=== PATIENT | female | born 2000 | race Caucasian/White ===

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

== ENCOUNTER 2019-01-02 13:05 | Inpatient (IN) | payer OTHER ==
[2019-01-02] MEDS ORDERED: TUBERCULIN PPD 5 TU/0.1ML SYRINGE (IN PATIENT USE ONLY) ID ONE (13:40)
[2019-01-02] MEDS: ELECTROLYTE-148 SOLN 1,000 ML IV SCH ×2 (13:55→16:51)
[2019-01-02 13:59] VITALS: BMI 25.7
[2019-01-02 14:00] LABS: BASO % 0.3 % (0-2.0); EOS % 0.3 % (0-4.5); HEMATOCRIT 36.6 % (32.4-45.2); HEMOGLOBIN 12.5 GM/dL (10.7-15.3); LYMPH % 18.1 % (8-40); MCH 32.1 pg (25.7-33.7); MCHC 34.1 g/dl (32.0-36.0); MEAN CELL VOLUME 94.1 fl (80-96); MEAN PLT VOLUME 11.4 fl (7.5-11.1); MONO % 5.2 % (3.8-10.2); NEUT % 76.1 % (42.8-82.8); PLATELET COUNT 153 K/MM3 (134-434); RBC 3.89 M/mm3 (3.60-5.2); RDW 13.6 % (11.6-15.6); WHITE BLOOD COUNT 13.2 K/mm3 (4.0-10.0)
[2019-01-02] MEDS ORDERED: FENTANYL/BUPIVACAINE/NS/PF - PCEA - 50 ML DISP.SYRIN EP ONE (14:14)
[2019-01-02 14:29] LABS: CALCIUM 9.1 mg/dL (8.5-10.1); CREATININE 0.4 mg/dL (0.55-1.3); POTASSIUM 3.5 mmol/L (3.5-5.1)
[2019-01-02 14:31] LABS: INR 0.94 (0.83-1.09); PROTHROMBIN TIME (PATIENT) 11.1 SEC (9.7-13.0)
[2019-01-02 14:34] LABS: ACTIVATED PTT 27.6 SECONDS (25.2-36.5)
--- NOTE | 2019-01-02 16:12 | HP ---
Past Medical History - Admission Chief Complaint: Labor pain History of Present Illness: 18 yo @ 39 weeks gestation, EDC 01/09/19, presents c/o labor pain. Uppon admission she was 4cm dilated with intact membrane. History Source: Patient Limitations to Obtaining History: No Limitations - Past Medical History ...: 3 ...Para: 1 ...Term: 1 ...: 0 ...Spon : 1 ...Induced : 0 ...Multiple Gestation: 0 ...LMP: 04/29/18 ... Weeks Gestation by Dates: 35.4 ...EDC by Dates: 02/02/19 ...EDC by Sono: 01/09/19 - Past Surgical History Past Surgical History: Yes: None Hx Myomectomy: No Hx Transabdominal Cerclage: No - Smoking History Smoking history: Never smoked Have you smoked in the past 12 months: Yes - Alcohol/Substance Use Hx Alcohol Use: No History of Substance Use: reports: None - Social History History of Recent Travel: No Home Medications - Allergies Allergies/Adverse Reactions: Allergies Allergy/AdvReac Type Severity Reaction Status Date / Time No Known Allergies Allergy Verified 01/02/19 13:41 - Home Medications Home Medications: Ambulatory Orders Vit/Iron Fum/Folic AC [ Tablet] 1 each PO DAILY 05/25/16 Family Disease History - Family Disease History Family History: Unremarkable Review of Systems - Review of Systems Constitutional: reports: No Symptoms Eyes: reports: No Symptoms HENT: reports: No Symptoms Neck: reports: No Symptoms Cardiovascular: reports: No Symptoms Respiratory: reports: No Symptoms Gastrointestinal: reports: No Symptoms Genitourinary: reports: Pain Breasts: reports: No Symptoms Reported Musculoskeletal: reports: No Symptoms Integumentary: reports: No Symptoms Neurological: reports: No Symptoms Psychiatric: reports: No Symptoms Pain Intensity: 6 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 - Maternity Vital Signs: Vital Signs Temperature 98.2 F 01/02/19 15:00 Pulse Rate 107 H 01/02/19 15:00 Respiratory Rate 20 01/02/19 15:00 Blood Pressure 100/63 01/02/19 15:00 O2 Sat by Pulse Oximetry (%) Constitutional: Yes: Well Nourished Eyes: Yes: Conjunctiva Clear HENT: Yes: Atraumatic Neck: Yes: Supple Cardiovascular: Yes: Regular Rate and Rhythm Lungs: Clear to auscultation - Abdominal Exam/OB Number of Fetuses: Single Presentation: Vertex - Vaginal Exam/OB Dilatation (cm): 4 Effacement (%): 80 Amniotic Membrane Status: Intact Station: -1 - 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 Musculoskeletal: Yes: WNL Extremities: Yes: WNL ...Motor Strength: WNL Psychiatric: Yes: Alert, Oriented - Labs Lab Results: CBC, BMP 01/02/19 13:38 01/02/19 13:38 Problem List - Problems (1) Pain during labor Code(s): O99.89 - OTH DISEASES AND CONDITIONS COMPL PREG/CHLDBRTH; R52 - PAIN, UNSPECIFIED Assessment/Plan 39 weeks gestation Labor pain Admit to L&D Analgesia as needed Anticipate
[2019-01-02] MEDS ORDERED: DEXTROSE 5%-LACTATED RINGERS 1,000 ML IV SCH (16:15)
[2019-01-02] MEDS ORDERED: NALOXONE HCL 0.4 MG/ML VIAL IVPUSH PRN (16:25)
[2019-01-02] MEDS ORDERED: FENTANYL/BUPIVACAINE/NS/PF - PCEA - 50 ML DISP.SYRIN EP SCH (16:30)
[2019-01-02] MEDS ORDERED: OXYTOCIN 20 UNITS in 0.9% NS 20 UNIT/1,000 ML INFUS.BAG IV ONE (17:52)
[2019-01-02] MEDS ORDERED: METHYLERGONOVINE MALEATE 0.2 MG/1 ML AMP IM PRN (18:25)
[2019-01-02] MEDS ORDERED: BENZOCAINE 28 GM HEMORRHOIDAL OINTMENT TP PRN (18:25)
[2019-01-02] MEDS ORDERED: BISACODYL 10 MG SUPP.RECT RC PRN (18:25)
[2019-01-02] MEDS ORDERED: BENZOCAINE 20% 57 GM BOTTLE TP PRN (18:25)
[2019-01-02] MEDS ORDERED: WITCH HAZEL 50% (TUCKS) 40 PAD/JAR PAD TP PRN (18:25)
--- NOTE | 2019-01-02 18:28 | PN ---
Delivery - Delivery Vaginal Delivery: Spontaneous Type of Anesthesia: Epidural Episiotomy/Laceration: 1st degree EBL (cc): 300 Delivery, Single - [place] Feeding Plan Initial Plan: Elected not to breastfeed exclusively throughout hospitalization Remarks - Remarks Remarks: Normal spontaneous vaginal delivery of a live infant girl over first degree laceration. Nose / Oroharynx suctioned @ perineum. Cord clamped and cut. Baby handed to nurse. Placenta expelled spontaneously intact. Laceration repaired with 2.0 Biosyn.
[2019-01-02] MEDS ORDERED: OXYTOCIN 20 UNITS in 0.9% NS 20 UNIT/1,000 ML INFUS.BAG IV SCH (18:30)
[2019-01-02] MEDS: FERROUS SO4 325 MG TABLET (FP) PO SCH (22:55)
[2019-01-02] MEDS: IBUPROFEN 600 MG TABLET (FP) PO PRN (23:53)
[2019-01-02] MEDS: ACETAMINOPHEN 325 MG TABLET (FP) PO PRN (23:55)
[2019-01-03 06:36] LABS: HBsAG SCREEN Negative (Negative)
[2019-01-03 07:07] LABS: BASO % 0.3 % (0-2.0); EOS % 0.8 % (0-4.5); HEMATOCRIT 32.5 % (32.4-45.2); HEMOGLOBIN 11.2 GM/dL (10.7-15.3); MCH 32.4 pg (25.7-33.7); MCHC 34.4 g/dl (32.0-36.0); MEAN CELL VOLUME 94.2 fl (80-96); MEAN PLT VOLUME 10.6 fl (7.5-11.1); NEUT % 69.9 % (42.8-82.8); PLATELET COUNT 130 K/MM3 (134-434); RBC 3.45 M/mm3 (3.60-5.2); RDW 13.4 % (11.6-15.6); WHITE BLOOD COUNT 12.9 K/mm3 (4.0-10.0)
[2019-01-03] MEDS: ELECTROLYTE-148 SOLN 1,000 ML IV SCH (07:19)
--- NOTE | 2019-01-03 08:09 | PN ---
Post Progress Note - Subjective Subjective: 18 yo Para 2 status post vaginal delivery, seen and evaluated. Doing well Post Day: 1 Type of Delivery: Vital Signs: Vital Signs Temperature 97.8 F 01/03/19 06:00 Pulse Rate 84 01/03/19 06:00 Respiratory Rate 18 01/03/19 06:00 Blood Pressure 121/71 01/03/19 06:00 O2 Sat by Pulse Oximetry (%) 98 01/02/19 22:05 Breast Exam: Yes: Soft Uterus: Yes: Fundus Firm Abdomen/GI: Yes: Abdomen soft, Tolerating PO Lochia: Yes: Rubra Lochia, amount: Moderate Extremities: Yes: Calves non-tender Perineum: Yes: Laceration (Healing) Activity: Ambulating - Labs Labs: CBC WBC 12.9 K/mm3 (4.0-10.0) H 01/03/19 05:20 RBC 3.45 M/mm3 (3.60-5.2) L 01/03/19 05:20 Hgb 11.2 GM/dL (10.7-15.3) 01/03/19 05:20 Hct 32.5 % (32.4-45.2) 01/03/19 05:20 MCV 94.2 fl (80-96) 01/03/19 05:20 MCH 32.4 pg (25.7-33.7) 01/03/19 05:20 MCHC 34.4 g/dl (32.0-36.0) 01/03/19 05:20 RDW 13.4 % (11.6-15.6) 01/03/19 05:20 Plt Count 130 K/MM3 (134-434) L 01/03/19 05:20 MPV 10.6 fl (7.5-11.1) 01/03/19 05:20 Absolute Neuts (auto) 9.0 K/mm3 (1.5-8.0) H 01/03/19 05:20 Neutrophils % 69.9 % (42.8-82.8) 01/03/19 05:20 Lymphocytes % 22.0 % (8-40) D 01/03/19 05:20 Monocytes % 7.0 % (3.8-10.2) 01/03/19 05:20 Eosinophils % 0.8 % (0-4.5) D 01/03/19 05:20 Basophils % 0.3 % (0-2.0) 01/03/19 05:20 Nucleated RBC % 0 % (0-0) 01/03/19 05:20 Problem List - Problems (1) Pain during labor Code(s): O99.89 - OTH DISEASES AND CONDITIONS COMPL PREG/CHLDBRTH; R52 - PAIN, UNSPECIFIED (2) Status post normal vaginal delivery Code(s): [id number] - Assessment/Plan Status post normal vaginal delivery Stable Continue routine care
[2019-01-03] MEDS: PRENATAL VITAMINS W/ FOLIC ACID TABLET (FP) PO SCH (09:00)
[2019-01-03] MEDS: FERROUS SO4 325 MG TABLET (FP) PO SCH ×2 (09:00→21:28)
[2019-01-03] MEDS: ACETAMINOPHEN 325 MG TABLET (FP) PO PRN (21:28)
[2019-01-03] MEDS: IBUPROFEN 600 MG TABLET (FP) PO PRN (21:29)
[2019-01-03] MEDS ORDERED: SENNOSIDES/DOCUSATE COMBO (SENNA PLUS) TABLET (UD) PO PRN (22:00)
[2019-01-04 08:15] VITALS: BP 99/59; PULSE 80; TEMP 98.2
[2019-01-04] MEDS: FERROUS SO4 325 MG TABLET (FP) PO SCH (09:16)
[2019-01-04] MEDS: IBUPROFEN 600 MG TABLET (FP) PO PRN (09:16)
[2019-01-04] MEDS: ACETAMINOPHEN 325 MG TABLET (FP) PO PRN (09:16)
[2019-01-04] MEDS: PRENATAL VITAMINS W/ FOLIC ACID TABLET (FP) PO SCH (09:16)
--- NOTE | 2019-01-04 10:01 | DS ---
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-DEHYDROGENATION OPERATOR Vital Signs: Vital Signs Temperature 98.2 F 01/04/19 08:14 Pulse Rate 80 01/04/19 08:14 Respiratory Rate 20 01/04/19 08:14 Blood Pressure 99/59 L 01/04/19 08:14 O2 Sat by Pulse Oximetry (%) 98 01/02/19 22:05 Constitutional: Yes: Well Nourished Eyes: Yes: Conjunctiva Clear HENT: Yes: Atraumatic Neck: Yes: Supple Cardiovascular: Yes: Regular Rate and Rhythm Respiratory: Yes: Regular Gastrointestinal: Yes: Normal Bowel Sounds External Genitalia: Yes: Normal Vaginal Exam: Yes: Normal Cervix: Yes: Normal Uterus: Yes: Firm ....Post : Yes: Uterus firm, Moderate lochia serosa Breast(s): Yes: WNL Musculoskeletal: Yes: WNL Extremities: Yes: WNL Integumentary: Yes: WNL Neurological: Yes: Alert, Oriented Psychiatric: Yes: Alert, Oriented Labs: CBC, BMP 01/03/19 05:20 01/02/19 13:38 Delivery - Delivery Vaginal Delivery: Spontaneous Type of Anesthesia: Epidural Episiotomy/Laceration: 1st degree EBL (cc): 300 Delivery, Single - Stages of Labor Date 1st Stage Initiatied: 01/02/19 Time 1st Stage Initiated: 11:00 Date 2nd Stage Initiated: 01/02/19 Time 2nd Stage Initiated: 17:55 Date of Delivery: 01/02/19 Time of Delivery: 18:08 Time Placenta Delivered: 18:15 - Condition of Pusher Runner/Automobile Service Station Attendant Present: No Infant Gender: Female Weight: 8 lb 2 oz Total Hours ROM (Hrs/Mins): 23 - 1 Minute Total Score: 9 5 Minutes Total Score: 9 - [place] Feeding Plan Initial Plan: Elected not to breastfeed exclusively throughout hospitalization Discharge Summary Reason For Visit: LABOR Current Active Problems Pain during labor (Acute) Status post normal vaginal delivery (Acute) Procedures: Principal: Normal spontaneous vaginal delivery Hospital Course: Routine care Condition: Good - Instructions Diet, Activity, Other Instructions: return to office in 4-6 weeks for check. call for appointment. Referrals: Yenny Villa MD [Staff Physician] - - Home Medications Comprehensive Discharge Medication List: Ambulatory Orders Vit/Iron Fum/Folic AC [ Tablet] 1 each PO DAILY 05/25/16
[2019-01-04 21:09] LABS: RUBELLA IgG ANTIBODY 2.21 index (Immune >0.99)
== END 2019-01-04 13:00 | disposition home or self-care (01) | DRG 560 ==
LOC: JLDR 13:05 → J3W 21:05
PROVIDERS: ADMIT Obstetrics & Gynecology; ATTEND Obstetrics & Gynecology
PROC: 10E0XZZ Delivery of Products of Conception, External Approach (ICD-10-PCS; principal; 2019-01-02)
PROC: 0HQ9XZZ Repair Perineum Skin, External Approach (ICD-10-PCS; 2019-01-02)
DX: O70.0 First degree perineal laceration during delivery (principal); Z3A.39 39 weeks gestation of pregnancy; Z37.0 Single live birth
CPT/HCPCS: 36415; 59025; 59409; 80048; 85025; 85610; 85730; 86593; 86762; 86850; 86900; 86901; 87340